=== PATIENT | male | born 1990 | race Caucasian/White ===

== ENCOUNTER 2020-04-25 09:30 | Emergency (ER) | payer OTHER ==
--- OUTSIDE RECORDS SUMMARY | 2020-04-25 09:35 | XMS REPORT | Continuity of Care Document ---
:1990 Author Organization [facility] t Address [address] [place] [address] Care Team Providers Name Role Phone Unavailable Unavailable Unavailable Payers Payer Name Policy Type Policy Number Effective Date Expiration Date S ource Problems This patient has no known problems. Allergies, Adverse Reactions, Alerts Allergy Allergy Status Severity Reaction(s) Onset Inactive Treating Comm ents Source Name Type Date Date Clinician No Known DA Active [facility]ie 03-22 [facility] 00:00: Health 00 are [place] Medications This patient has no known medications. Procedures This patient has no known procedures. Results Test Description Test Time Test Comments Results Result Comments Source TROPONIN I RAPID 2020-03-22 15:03:00 Test Item Value Reference Range Interpretation Comme nts TROPONIN I RAPID (test code 0.00 ng/mL 0.00-0.08 N ISTAT TROPONIN I = TROPIRAP) CRITERIA0.00-0. 08 ng/mL - Negative>0.08 n g/mL - Positive The use of seri al sampling and testing protoco l is arecommended practice.An jw vated troponin level alone is often not sufficient fordiagnosis of myocardial infarction. Tro ponin results obtained by dif ferent assays may vary.Evaluation of the extent of myocardial ruddy ge based onincrease of troponin wou ld be valid only if similarmethodol ogy is used. BASIC METABOLIC [id number] 14:56:00 Test Item Value Reference Range Interpretation Comments SODIUM (test code 139 mmol/L 136-145 N = NA) POTASSIUM (test 3.7 MMOL/L 3.6-5.2 N code = K) CHLORIDE (test 103 MMOL/L 98-110 N code = CL) CARBON DIOXIDE 27 mEq/L 24-32 N (test code = CO2) GLUCOSE (test code 106 mg/dL 70-110 N = GLU) BLOOD UREA 12 mg/dL 7-18 N NITROGEN (test code = BUN) GLOMERULAR >=60 max >60 The estimated FILTRATION RATE estimate glomerular (test code = GFR) filtration rate is computed usingpatient ra ce, age (>18), sex, and serum creatinin e. If anyof the neede d data elements a re missing the Laboratory magi ot compute an estimation of t he glomerular filtration rate . CREATININE (test 0.87 mg/dL 0.60-1.30 N code = CREAT) CALCIUM (test code 9.2 mg/dL 8.6-10.3 N = CA) LIVER FUNCTION [id number] 14:56:00 Test Item Value Reference Range Interpretation Comments TOTAL PROTEIN (test 7.9 g/dL 6.0-8.3 N code = PROT) ALBUMIN (test code = 4.9 g/dL 3.2-5.5 N ALB) BILIRUBIN TOTAL 0.7 mg/dL 0.2-1.0 N W-baquiu-l-b enzoquinone (test code = BILT) imine (NA PQI), a metabolite ofacetaminophen (paracetamol), may generate errone ously lowresults in s amples for patients th at have taken toxic dos esof acetaminophen (paracetamol). BILIRUBIN DIRECT 0.1 mg/dL 0.0-0.2 N N-acetyl-p- benzoquinone (test code = BILD) imine (NA PQI), a metabolite ofacetaminophen (paracetamol), may generate errone ously lowresults in s amples for patients th at have taken toxic dos esof acetaminophen (paracetamol). BILIRUBIN INDIRECT 0.6 mg/dL (test code = BILIND) SGOT/AST (test code 18 UNITS/L 10-42 N = AST) SGPT/ALT (test code 19 UNITS/L 10-40 N = ALT) ALKALINE PHOSPHATASE 89 UNITS/L 38-126 N (test code = ALKP) BASIC METABOLIC [id number] 14:48:00 Test Item Value Reference Range Interpretation Comments SODIUM (test code = NA) 139 mmol/L 136-145 N POTASSIUM (test code = K) 3.7 MMOL/L 3.6-5.2 N CHLORIDE (test code = CL) 103 MMOL/L 98-110 N CARBON DIOXIDE (test code = CO2) 27 mEq/L 24-32 N GLUCOSE (test code = GLU) 106 mg/dL 70-110 N BLOOD UREA NITROGEN (test code = mg/dL 7-18 BUN) GLOMERULAR FILTRATION RATE (test >60 code = GFR) CREATININE (test code = CREAT) mg/dL 0.60-1.30 CALCIUM (test code = CA) 9.2 mg/dL 8.6-10.3 N LIVER FUNCTION [id number] 14:48:00 Test Item Value Reference Range Interpretation Comments TOTAL PROTEIN (test code = PROT) g/dL 6.0-8.3 ALBUMIN (test code = ALB) g/dL 3.2-5.5 BILIRUBIN TOTAL (test code = BILT) mg/dL 0.2-1.0 BILIRUBIN DIRECT (test code = BILD) mg/dL 0.0-0.2 SGOT/AST (test code = AST) UNITS/L 10-42 SGPT/ALT (test code = ALT) UNITS/L 10-40 ALKALINE PHOSPHATASE (test code = UNITS/L 38-126 ALKP) BASIC METABOLIC [id number] 14:46:00 Test Item Value Reference Range Interpretation Comments SODIUM (test code = NA) mmol/L 136-145 POTASSIUM (test code = K) 3.7 MMOL/L 3.6-5.2 N CHLORIDE (test code = CL) MMOL/L 98-110 CARBON DIOXIDE (test code = CO2) mEq/L 24-32 GLUCOSE (test code = GLU) mg/dL 70-110 BLOOD UREA NITROGEN (test code = mg/dL 7-18 BUN) GLOMERULAR FILTRATION RATE (test >60 code = GFR) CREATININE (test code = CREAT) mg/dL 0.60-1.30 CALCIUM (test code = CA) mg/dL 8.6-10.3 LIVER FUNCTION [id number] 14:46:00 Test Item Value Reference Range Interpretation Comments TOTAL PROTEIN (test code = PROT) g/dL 6.0-8.3 ALBUMIN (test code = ALB) g/dL 3.2-5.5 BILIRUBIN TOTAL (test code = BILT) mg/dL 0.2-1.0 BILIRUBIN DIRECT (test code = BILD) mg/dL 0.0-0.2 SGOT/AST (test code = AST) UNITS/L 10-42 SGPT/ALT (test code = ALT) UNITS/L 10-40 ALKALINE PHOSPHATASE (test code = UNITS/L 38-126 ALKP) - XR CHEST 1 [id number] 14:42:00Patient Name: NATHALIE MCKEE Unit No: [id number] EXAMS: CPT: [id number] XR CHEST 1 V 77601 CHEST, 1 VIEW: HISTORY: Weakness COMPARISON: No previous pertinent examination is available. FINDINGS: The lungs appear grossly clear. The heart is mildly enlarged. No infiltrates or pulmonary edema is present. No significant pleural effusions are seen IMPRESSION: No acute abnormality is detected. at 1442 Reported andsigned by: Jaxon Ramsey MD CC: Amira Estrada MD Technologist: Derek Espinoas Time: DAP (Gy m2): Air Kerma (mGy): Trscr Dt/Tm: 03/22/2020 (1442) by:[email or web address] Orig Print D/T: S: 03/22/2020 (1449) BATCH NO: N/A Name: NATHALIE MCKEE [facility] Andres Phys: Amira Vazquez [address] [facility] : 1990 Age: 29 Sex:[place] Loc: TJanaeERS Exam Date: 03/22/2020 Status: REG ER PH: FAX: PAGE 1 Signed Report CBC W/AUTO [id number] 14:40:00 Test Item Value Reference Range Interpretation Comments WHITE BLOOD CELL (test code = 10.99 K/mm3 5.0-12.0 N WBC) RED BLOOD CELL (test code = RBC) 5.08 M/mm3 4.70-6.10 N HEMOGLOBIN (test code = HGB) 15.0 G/DL 14.0-18.0 N HEMATOCRIT (test code = HCT) 44.2 % 37.0-49.0 N MEAN CELL VOLUME (test code = 87 fL 80-94 N MCV) MEAN CELL HGB (test code = MCH) 29.5 PGM 27-31 N MEAN CELL HGB CONCENTRATION (test 33.9 G/DL 33-37 N code = MCHC) RED CELL DISTRIBUTION WIDTH (test 12.7 % 11.6-16.2 N code = RDW) PLATELET COUNT (test code = PLT) 262 K/mm3 130-400 N MEAN PLATELET VOLUME (test code = 10.5 fl 7.4-10.4 H MPV) NEUTROPHIL % (test code = NT%) 64.3 % 43-65 N IMMATURE GRANULOCYTE % (test code 0.5 % 0.0-2.0 N = IG%) LYMPHOCYTE % (test code = LY%) 23.8 % 20.5-45.5 N MONOCYTE % (test code = MO%) 9.6 % 5.5-11.7 N EOSINOPHIL % (test code = EO%) 1.4 % 0.9-2.9 N BASOPHIL % (test code = BA%) 0.4 % 0.2-1.0 N NUCLEATED RBC % (test code = 0.0 % 0-1.0 N NRBC%) NEUTROPHIL # (test code = NT#) 7.06 K/mm3 2.2-4.8 H LYMPHOCYTE # (test code = LY#) 2.62 K/mm3 1.3-2.9 N MONOCYTE # (test code = MO#) 1.06 K/mm3 0.3-0.8 H EOSINOPHIL # (test code = EO#) 0.15 K/MM3 0.0-0.2 N BASOPHIL # (test code = BA#) 0.04 K/mm3 0.0-0.1 N - CT HEAD/BRAIN W/O [id number] 14:35:00Patient Name: NATHALIE MCKEE Unit No: [id number] EXAMS: CPT: [id number] CT HEAD/BRAIN W/O CONT 92017 CT OF THE HEAD WITHOUT CONTRAST: HISTORY: Dizziness and shortness of breath Comparison: No previous pertinent examination is available. Technique: Axial images through the head was performed without intravenous contrast. Coronal sagittal reconstructed images were obtained. CT radiation dose optimization is achieved for this examination by the use of a CT protocol in accordance with ACR practice standards and adherence to manufacturers recommendations One or more of the following dose reduction techniques were used: Automated exposure control, adjustment of the mA and/or KV according to patient size, and/or utilization of iterative reconstruction technique. DLP : 759 mGy cm FINDINGS: Ventricles and sulci are normal insize an shape. No acute infarct or hemorrhage is noted. No mass-effect or midline shift is seen. The ventricular system and subarachnoid spaces appear normal. The calvarium isunremarkable. The soft tissues and orbits show no significant abnormality. The visualized portions of the paranasal sinuses and mastoid air cells are clear. IMPRESSION: No acute intracranial abnormality is detected. at 1435 Reported and signed by: Jaxon Ramsey MD Name: NATHALIE MCKEE Phys: Amira Vazquez [address] [facility] : 1990 Age: 29 Sex: M [place] Loc: T.ERS Exam Date: 03/22/2020 Status: REG ER PH: FAX: PAGE 1 Signed Report (CONTINUED) Patient Name: NATHALIE MCKEE Unit No: [id number] EXAMS: CPT: [id number] CT HEAD/BRAIN W/O [id number] <Continued> CC: Amira Estrada MD Technologist: Eri Gaytan CTDI: 40.74 DLP: 759.17 Trscr Dt/Tm: 03/22/2020 (1435) by:[email or web address] Orig Print D/T: S: 03/22/2020 (1438) BATCH NO: N/A Name: NATHALIE MCKEE [facility] Andres Phys: Amira Vazquez [address] [facility] : 1990 Age: 29 Sex: M [place] Loc: T.ERS Exam Date: 03/22/2020 Status: REG ER PH: FAX: PAGE 2 Signed Report
[2020-04-25 10:40] LABS: Basophils % 0.6 % (0-1.3); Hematocrit 41.3 % (39.6-49.0); Lymphocytes % 13.5 % (15.3-44.8); MPV 9.1 fL (7.6-11.3)
[2020-04-25 10:58] LABS: ALT/SGPT 24 U/L (12-78); AST/SGOT 14 U/L (15-37); Albumin 4.2 g/dL (3.4-5.0); Alkaline Phosphatase 91 U/L (45-117); BUN Blood Urea Nitrogen 10 mg/dL (7-18); Bicarbonate 25 mmol/L (21-32); Bilirubin Direct 0.2 mg/dL (0-0.2); Bilirubin Total 0.7 mg/dL (0.2-1.0); Glucose Level 101 mg/dL (74-106); Magnesium 2.1 mg/dL (1.8-2.4); Potassium 3.6 mmol/L (3.5-5.1); Protein, Total 7.5 g/dL (6.4-8.2); Sodium Level 141 mmol/L (136-145); Troponin (Emerg Dept Use Only) < 0.02 ng/mL (0.0-0.045)
--- NOTE | 2020-04-25 11:42 | RAD REPORT ---
EXAM DESCRIPTION: RAD - Chest Single View - 04/25/2020 10:56 am CLINICAL HISTORY: Dizziness Chest pain. COMPARISON: No comparisons FINDINGS: Portable technique limits examination quality. The lungs are grossly clear. The heart is normal in size. No displaced fractures. IMPRESSION: No acute intrathoracic process suspected.
[2020-04-25] MEDS ORDERED: MECLIZINE HCL 12.5 MG TAB ONE (12:07)
--- NOTE | 2020-04-25 12:29 | RAD REPORT ---
EXAM DESCRIPTION: CT - Head Brain Wo Cont - 04/25/2020 12:22 pm CLINICAL HISTORY: DIZZINESS Headache, drowsiness, syncope COMPARISON: No comparisons TECHNIQUE: All CT scans are performed using dose optimization technique as appropriate and may inclu de automated exposure control or mA/KV adjustment according to patient size. FINDINGS: No intracranial hemorrhage, hydrocephalus or extra-axial fluid collection.No areas of brai n edema or evidence of midline shift. The paranasal sinuses and mastoids are clear. The calvarium is intact. IMPRESSION: No acute intracranial abnormality.
--- NOTE | 2020-04-25 12:36 | EDPHYS ---
Physician Documentation [facility] Name: Santos Gray Age: 29 yrs Sex: Male : 1990 Arrival Date: 04/25/2020 Time: 09:39 Bed 14 Private MD: ED Physician Osmar Chaves HPI: 04/25 10:19 This 29 yrs old Male presents to ER via Ambulatory with complaints of pm1 Dizziness. 10:19 The patient presents with sense of spinning. Onset: The symptoms/episode began/occurred pm1 just prior to arrival. Context: occurred while the patient was driving and noticed worse with moving his head. Modifying factors: The symptoms are alleviated by nothing, the symptoms are aggravated by movement of head. Associated signs and symptoms: Pertinent negatives: abdominal pain, chest pain, focal weakness, head injury, headache, nausea, numbness, shortness of breath, vomiting. Severity of symptoms: in the emergency department the symptoms have resolved Pain is currently a 0 / 10. Patient's baseline: Neuro: alert and fully oriented, Motor: no deficits, Ambulation: walks without assistance, The patient has a previous history of. The patient has not experienced similar symptoms in the past. It is unknown whether or not the patient has recently seen a physician. Historical: - Allergies: 11:39 No Known Allergies; - Home Meds: 11:39 Tecfidera oral oral [Active]; - PMHx: 11:39 Multiple Sclerosis; - PSHx: 11:39 None; - Immunization history:: Adult Immunizations up to date, Flu vaccine is not up to date. - Social history:: Smoking status: Patient denies any tobacco usage or history of. Patient uses alcohol, occasionally. ROS: 11:49 Constitutional: Negative for fever, chills, and weight loss, Cardiovascular: Negative pm1 for chest pain, palpitations, and edema, Respiratory: Negative for shortness of breath, cough, wheezing, and pleuritic chest pain, Abdomen/GI: Negative for abdominal pain, nausea, vomiting, diarrhea, and constipation, Back: Negative for injury and pain, MS/Extremity: Negative for injury and deformity, Skin: Negative for injury, rash, and discoloration. 11:49 Neuro: Positive for dizziness, Negative for headache, numbness, tingling, weakness. 11:49 All other systems are negative. pm1 Exam: 11:49 Constitutional: This is a well developed, well nourished patient who is awake, alert, pm1 and in no acute distress. Head/Face: Normocephalic, atraumatic. Eyes: Pupils equal round and reactive to light, extra-ocular motions intact. Lids and lashes normal. Conjunctiva and sclera are non-icteric and not injected. Cornea within normal limits. Periorbital areas with no swelling, redness, or edema. ENT: Nares patent. No nasal discharge, no septal abnormalities noted. Tympanic membranes are normal and external auditory canals are clear. Oropharynx with no redness, swelling, or masses, exudates, or evidence of obstruction, uvula midline. Mucous membranes moist. Neck: Trachea midline, no thyromegaly or masses palpated, and no cervical lymphadenopathy. Supple, full range of motion without nuchal rigidity, or vertebral point tenderness. No Meningismus. Chest/axilla: Normal chest wall appearance and motion. Nontender with no deformity. No lesions are appreciated. Cardiovascular: Regular rate and rhythm with a normal S1 and S2. No gallops, murmurs, or rubs. Normal PMI, no JVD. No pulse deficits. Respiratory: Lungs have equal breath sounds bilaterally, clear to auscultation and percussion. No rales, rhonchi or wheezes noted. No increased work of breathing, no retractions or nasal flaring. Abdomen/GI: Soft, non-tender, with normal bowel sounds. No distension or tympany. No guarding or rebound. No evidence of tenderness throughout. Back: No spinal tenderness. No costovertebral tenderness. Full range of motion. Skin: Warm, dry with normal turgor. Normal color with no rashes, no lesions, and no evidence of cellulitis. MS/ Extremity: Pulses equal, no cyanosis. Neurovascular intact. Full, normal range of motion. 11:49 Neuro: Exam negative for acute changes, Orientation: is normal, Mentation: is normal, Memory: is normal, Cranial nerves: CN II- XII are normal as tested, Cerebellar function: normal finger to nose testing, heel to king testing is normal, Motor: is normal, moves all fours, strength is normal, strength is 5/5 in all extremities, Sensation: is normal, no obvious gross deficits. Vital Signs: 10:13 BP 133 / 78; Pulse 86; Resp 17; Pulse Ox 97% ; Weight 86.18 kg; Height 6 ft. 0 in. (182.88 cm); Pain 0/10; 11:00 BP 120 / 77; Pulse 81; Resp 18; Pulse Ox 100% ; ah 11:30 BP 128 / 84; Pulse 86; Resp 17; Pulse Ox 99% ; ah 11:45 BP 121 / 70; Pulse 83; Resp 21; Pulse Ox 99% ; ah 10:13 Body Mass Index 25.77 (86.18 kg, 182.88 cm) MDM: 10:17 Patient medically screened. pm1 12:27 Data reviewed: vital signs. Data interpreted: Pulse oximetry: on room air is 99 %. pm1 Interpretation: normal. 12:27 ED course: Patient reports return of dizziness. Horizontal nystagmus to left sided gaze pm1 with both eyes and reproduces dizziness. 12:34 Counseling: I had a detailed discussion with the patient and/or guardian regarding: the pm1 historical points, exam findings, and any diagnostic results supporting the discharge/admit diagnosis, lab results, radiology results, the need for outpatient follow up, for definitive care, a neurologist, to return to the emergency department if symptoms worsen or persist or if there are any questions or concerns that arise at home. 04/25 10:17 Order name: Basic Metabolic Panel; Complete Time: 11:15 pm04/25 10:17 Order name: CBC with Diff; Complete Time: 10:50 pm04/25 10:17 Order name: LFT's; Complete Time: 11:15 pm04/25 10:17 Order name: Magnesium; Complete Time: 11:15 pm04/25 10:17 Order name: Troponin (emerg Dept Use Only); Complete Time: 11:15 pm04/25 10:17 Order name: XRAY Chest (1 view); Complete Time: 11:43 pm04/25 10:17 Order name: EKG; Complete Time: 10:18 pm04/25 10:17 Order name: Cardiac monitoring; Complete Time: 11:30 pm04/25 10:17 Order name: EKG - Nurse/Tech; Complete Time: 11:30 pm04/25 10:17 Order name: IV Saline Lock; Complete Time: 11:30 pm 04/25 10:17 Order name: Labs collected and sent; Complete Time: 11:30 pm1 04/25 10:17 Order name: O2 Per Protocol; Complete Time: 11:31 pm1 04/25 11:57 Order name: CT Head Brain wo Cont; Complete Time: 12:30 pm1 04/25 10:17 Order name: O2 Sat Monitoring; Complete Time: 11:31 pm1 EC: Rate is 77 beats/min. Rhythm is regular, Normal Sinus Rhythm. No Q waves. T waves are pm1 Normal. No ST changes noted. Clinical impression: Normal ECG. Administered Medications: 12:01 Drug: Meclizine 50 mg Route: PO; dm5 12:43 Follow up: Response: No adverse reaction Disposition: 18:35 Co-signature as Attending Physician, Osmar Chaves MD. ky2 Disposition: 04/25/20 12:35 Discharged to Home. Impression: Dizziness and giddiness. - Condition is Stable. - Discharge Instructions: Dizziness, Vertigo. - Prescriptions for Meclizine 25 mg Oral Tablet - take 1 tablet by ORAL route every 8 hours As needed; 30 tablet. - Medication Reconciliation Form, Thank You Letter, Antibiotic Education, Prescription Opioid Use form. - Follow up: Emergency Department; When: As needed; Reason: Worsening of condition. Follow up: Private Physician; When: 2 - 3 days; Reason: Recheck today's complaints, Continuance of care, Re-evaluation by your physician. - Problem is new. - Symptoms have improved. Signatures: Dispatcher [employer] Yakelin John, RN RN dm5 Jeff Pettit NP APPLICATION CONSULTANT pm1 Osmar Chaves MD MD ky2 Geraldine Barth, RN RN Corrections: (The following items were deleted from the chart) 12:45 12:35 04/25/2020 12:35 Discharged to Home. Impression: Dizziness and giddiness. Condition is Stable. Forms are Medication Reconciliation Form, Thank You Letter, Antibiotic Education, Prescription Opioid Use. Follow up: Emergency Department; When: As needed; Reason: Worsening of condition. Follow up: Private Physician; When: 2 - 3 days; Reason: Recheck today's complaints, Continuance of care, Re-evaluation by your physician. Problem is new. Symptoms have improved. pm1
--- NOTE | 2020-04-25 12:36 | ER ---
Nurse's Notes [facility] Name: Santos Gray Age: 29 yrs Sex: Male : 1990 Arrival Date: 04/25/2020 Time: 09:39 Bed 14 Private MD: Diagnosis: Dizziness and giddiness Presentation: 04/25 10:08 Acuity: GURU 3 dm5 11:37 Chief complaint: Patient states: that he was driving and began to get dizzy and felt ah like he was going to pass out. Coronavirus screen: Proceed with normal triage. Ebola Screen: No symptoms or risks identified at this time. Initial Sepsis Screen: Does the patient meet any 2 criteria? No. Patient's initial sepsis screen is negative. Does the patient have a suspected source of infection? No. Patient's initial sepsis screen is negative. Risk Assessment: Do you want to hurt yourself or someone else? Patient reports no desire to harm self or others. Onset of symptoms was April 25, 2020. 11:37 Method Of Arrival: Ambulatory Historical: - Allergies: 11:39 No Known Allergies; - Home Meds: 11:39 Tecfidera oral oral [Active]; - PMHx: 11:39 Multiple Sclerosis; - PSHx: 11:39 None; - Immunization history:: Adult Immunizations up to date, Flu vaccine is not up to date. - Social history:: Smoking status: Patient denies any tobacco usage or history of. Patient uses alcohol, occasionally. Screenin:45 Abuse screen: Denies threats or abuse. Nutritional screening: No deficits noted. Tuberculosis screening: No symptoms or risk factors identified. Fall Risk None identified. Assessment: 11:30 General: Appears in no apparent distress. Behavior is calm, cooperative, appropriate for age. Pain: Denies pain. Neuro: Level of Consciousness is awake, alert, Oriented to person, place, time, situation, Appropriate for age. Cardiovascular: Heart tones S1 S2 present Capillary refill < 3 seconds Patient's skin is warm and dry. Rhythm is sinus rhythm. Respiratory: Airway is patent Respiratory effort is even, unlabored. Derm: Skin is intact, is healthy with good turgor, Skin is dry. 12:43 Reassessment: Pt states that the dizziness has decreased and medication was effective. Discharge instructions given at this time and educated on prescription. Pt voiced understanding. Vital Signs: 10:13 BP 133 / 78; Pulse 86; Resp 17; Pulse Ox 97% ; Weight 86.18 kg; Height 6 ft. 0 in. (182.88 cm); Pain 0/10; 11:00 BP 120 / 77; Pulse 81; Resp 18; Pulse Ox 100% ; ah 11:30 BP 128 / 84; Pulse 86; Resp 17; Pulse Ox 99% ; ah 11:45 BP 121 / 70; Pulse 83; Resp 21; Pulse Ox 99% ; ah 10:13 Body Mass Index 25.77 (86.18 kg, 182.88 cm) ED Course: 09:39 Patient arrived in ED. fj1 10:09 Jeff Pettit NP is PHCP. pm1 10:09 Osmar Chaves MD is Attending Physician. pm1 10:20 EKG done, by ED staff, reviewed by Jeff Pettit NP. Inserted saline lock: 20 gauge kj1 in right antecubital area, using aseptic technique. Blood collected. 10:40 Triage completed. dm5 10:56 XRAY Chest (1 view) In Process Unspecified. EDMS 11:27 Geraldine Barth, RN is Primary Nurse. ah 11:48 Patient has correct armband on for positive identification. Placed in gown. Call light in reach. Side rails up X 1. cook mess on. Pulse ox on. NIBP on. 11:48 Patient notified of wait time. ah 12:22 CT Head Brain wo Cont In Process Unspecified. EDMS 12:23 CT completed. Patient tolerated procedure well. Patient moved back from CT. bq 12:44 No provider procedures requiring assistance completed. IV discontinued, intact, bleeding controlled, No redness/swelling at site. Pressure dressing applied. Administered Medications: 12:01 Drug: Meclizine 50 mg Route: PO; dm5 12:43 Follow up: Response: No adverse reaction Outcome: 12:35 Discharge ordered by . pm1 12:44 Discharged to home ambulatory. ah 12:44 Condition: good 12:44 Discharge instructions given to patient, Instructed on discharge instructions, follow up and referral plans. Demonstrated understanding of instructions, follow-up care, medications, Prescriptions given X 1. 12:45 Patient left the ED. Signatures: Dispatcher [employer] EDMS Yakelin Fountain RN RN dm5 Devorah Parker Patrick, ARTIST REPRESENTATIVE ARTIST REPRESENTATIVE pm1 Katie Quinn kj1 Mikey Linder fj1 Geraldine Barth, RN RN ah
[2020-04-25 13:02] VITALS: BP 128/84; O2SAT 99
== END 2020-04-25 12:45 | disposition home or self-care (01) ==
LOC: ER 09:30
DX: R42 Dizziness and giddiness (principal); G35 Multiple sclerosis
CPT/HCPCS: 93005 ×5; 85025; 80048; 36415; 83735; 80076; 84484; 70450; 71045; 99285; J8597